=== PATIENT | female | born 1985 | race African-American/Black ===

== ENCOUNTER 2023-10-10 12:46 | Inpatient (IN) | payer OTHER ==
[2023-10-10 14:34] VITALS: BMI 22.5
[2023-10-10] MEDS ORDERED: MAGNESIUM HYDROX 2400MG/30ML ORAL SUSPENSION 30 ML CUP PO PRN (15:04)
[2023-10-10] MEDS ORDERED: BISMUTH SUBSALICYLATE 524 MG/30 ML PO PRN (15:04)
[2023-10-10] MEDS ORDERED: LOPERAMIDE HCL 2 MG CAPSULE PO PRN (15:04)
[2023-10-10] MEDS ORDERED: BENZOCAINE/MENTHOL (CHLORASEPTIC ) LOZENGE MM PRN (15:04)
[2023-10-10] MEDS ORDERED: POLYETHYLENE GLYCOL (HEALTHYLAX) 3350 17 GM PACKET PO PRN (15:04)
[2023-10-10] MEDS ORDERED: ACETAMINOPHEN 325 MG TABLET (FP) PO PRN (15:04)
[2023-10-10] MEDS ORDERED: IBUPROFEN 400 MG TABLET (FP) PO PRN (15:04)
[2023-10-10] MEDS ORDERED: BENZONATATE 200 MG CAPSULE PO PRN (15:04)
[2023-10-10] MEDS ORDERED: IBUPROFEN 600 MG TABLET (FP) PO PRN (15:04)
[2023-10-10] MEDS ORDERED: guaiFENesin 600 MG TABLET.ER (FP) PO PRN (15:04)
[2023-10-10] MEDS ORDERED: ONDANSETRON *ODT* 4 MG TABLET SL PRN (15:04)
[2023-10-10] MEDS ORDERED: MAG HYDROX/AL HYDROX/SIMETH 30 ML UNIT-DOSE CUP PO PRN (15:04)
[2023-10-10] MEDS ORDERED: NALOXONE HCL (KLOXXADO) 8 MG SPRAY NS PRN (15:04)
[2023-10-10] MEDS ORDERED: NALOXONE HCL 0.4 MG/ML VIAL IM PRN (15:04)
[2023-10-10] MEDS ORDERED: DICYCLOMINE HCL 10 MG CAPSULE PO PRN (15:04)
[2023-10-10] MEDS ORDERED: NICOTINE 14 MG/24 HOURS TOPICAL PATCH TD ONE (16:29)
[2023-10-10] MEDS ORDERED: PRENATAL VITAMINS W/ FOLIC ACID TABLET (FP) PO ONE (16:29)
[2023-10-10] MEDS: PRENATAL VITAMINS W/ FOLIC ACID TABLET (FP) PO SCH (16:32)
[2023-10-10] MEDS: NICOTINE 14 MG/24 HOURS TOPICAL PATCH TD SCH (16:34)
[2023-10-10] MEDS: hydrOXYzine PAMOATE 25 MG CAPSULE (FP) PO PRN (18:37)
[2023-10-10] MEDS: METHOCARBAMOL 500 MG TABLET PO PRN (18:38)
[2023-10-10] MEDS: THIAMINE 100 MG TABLET PO SCH (22:15)
[2023-10-10] MEDS: MELATONIN 5 MG TABLETS PO SCH (22:15)
[2023-10-11 12:36] LABS: CHLORIDE 102 mmol/L (98-107); POTASSIUM 3.3 mmol/L (3.5-5.1); SODIUM 136 mmol/L (136-145)
[2023-10-11 12:37] LABS: HEMATOCRIT 36.5 % (32.4-45.2); HEMOGLOBIN 12.7 GM/dL (10.7-15.3); MCH 33.5 pg (25.7-33.7); MCHC 34.8 g/dl (32.0-36.0); MEAN CELL VOLUME 96.2 fl (80-96); MEAN PLT VOLUME 8.5 fl (7.5-11.1); PLATELET COUNT 237 10^3/uL (134-434); RBC 3.79 M/mm3 (3.60-5.2); RDW 13.5 % (11.6-15.6); WHITE BLOOD COUNT 3.1 K/mm3 (4.0-10.0)
[2023-10-11 12:41] LABS: CALCIUM 8.6 mg/dL (8.5-10.1)
[2023-10-11 12:42] LABS: ALBUMIN 3.3 g/dl (3.4-5.0); ANION GAP 4 mmol/L (4-13); BLOOD UREA NITROGEN 10.4 mg/dL (7-18); CO2 29 mmol/L (21-32); GLUCOSE,RANDOM 82 mg/dL (74-106)
[2023-10-11 12:45] LABS: CREATININE 0.8 mg/dL (0.55-1.3); SGOT/AST 39 U/L (15-37); SGPT/ALT 24 U/L (13-61)
[2023-10-11 12:47] LABS: BILIRUBIN,TOTAL 0.8 mg/dL (0.2-1); TOT PROT 6.9 g/dl (6.4-8.2)
[2023-10-11 12:48] LABS: ALK PHOS 72 U/L (45-117)
[2023-10-11 13:30] LABS: HIV INTERPRETATION NEGATIVE (NEGATIVE)
[2023-10-11] MEDS: POTASSIUM CHLORIDE ORAL LIQUID 20 MEQ/15 ML PO ONE ×2 (13:40→22:20)
[2023-10-11] MEDS: cloNIDine HCL 0.1 MG TABLET PO PRN (18:37)
[2023-10-11] MEDS: MIRTAZAPINE 15 MG TABLET (FP) PO SCH (22:20)
[2023-10-12 10:20] VITALS: RESP 16
[2023-10-12 13:23] VITALS: BP 134/98; PULSE 72; TEMP 97.6
== END 2023-10-12 13:10 | disposition home or self-care (01) | DRG 775 ==
LOC: YASAS 12:46 → Y6N 16:24
PROVIDERS: ADMIT Allergy & Immunology; ATTEND Surgery
PROC: HZ2ZZZZ Detoxification Services for Substance Abuse Treatment (ICD-10-PCS; principal; 2023-10-10)
DX: F10.24 Alcohol dependence with alcohol-induced mood disorder (principal); F10.20 Alcohol dependence, uncomplicated; F12.10 Cannabis abuse, uncomplicated; F17.213 Nicotine dependence, cigarettes, with withdrawal; F32.A Depression, unspecified; E87.6 Hypokalemia; Z88.0 Allergy status to penicillin
CPT/HCPCS: 36415; 80053; 80305; 80307; 84132; 85027; 86780; 87389; 93005; 93010

== ENCOUNTER 2024-03-08 11:57 | Inpatient (IN) | payer OTHER ==
[2024-03-08 12:20] VITALS: BMI 19.4
[2024-03-08] MEDS ORDERED: BISMUTH SUBSALICYLATE 262 MG/15 ML BTL PO PRN (12:38)
[2024-03-08] MEDS ORDERED: MAG HYDROX/AL HYDROX/SIMETH 30 ML UNIT-DOSE CUP PO PRN (12:38)
[2024-03-08] MEDS ORDERED: guaiFENesin 600 MG TABLET.ER (FP) PO PRN (12:38)
[2024-03-08] MEDS ORDERED: diazePAM 5 MG TABLET PO PRN (12:38)
[2024-03-08] MEDS ORDERED: BENZOCAINE/MENTHOL (CHLORASEPTIC ) LOZENGE MM PRN (12:38)
[2024-03-08] MEDS ORDERED: IBUPROFEN 600 MG TABLET (FP) PO PRN (12:38)
[2024-03-08] MEDS ORDERED: NICOTINE POLACRILEX 2 MG GUM BUC PRN (12:38)
[2024-03-08] MEDS ORDERED: LOPERAMIDE HCL 2 MG CAPSULE PO PRN (12:38)
[2024-03-08] MEDS ORDERED: ACETAMINOPHEN 325 MG TABLET (FP) PO PRN (12:38)
[2024-03-08] MEDS ORDERED: NALOXONE HCL 0.4 MG/ML VIAL IM PRN (12:38)
[2024-03-08] MEDS ORDERED: POLYETHYLENE GLYCOL (HEALTHYLAX) 3350 17 GM PACKET PO PRN (12:38)
[2024-03-08] MEDS ORDERED: NALOXONE (NARCAN) HCL 4 MG/0.1 ML SPRAY NS PRN (12:38)
[2024-03-08] MEDS ORDERED: ONDANSETRON *ODT* 4 MG TABLET SL PRN (12:38)
[2024-03-08] MEDS ORDERED: MAGNESIUM HYDROX 2400MG/30ML ORAL SUSPENSION 30 ML CUP PO PRN (12:38)
[2024-03-08] MEDS ORDERED: BENZONATATE 200 MG CAPSULE PO PRN (12:38)
[2024-03-08] MEDS ORDERED: DICYCLOMINE HCL 10 MG CAPSULE PO PRN (12:38)
[2024-03-08] MEDS ORDERED: IBUPROFEN 400 MG TABLET (FP) PO PRN (12:38)
[2024-03-08] MEDS ORDERED: NICOTINE 14 MG/24 HOURS TOPICAL PATCH TD ONE (13:18)
[2024-03-08] MEDS: NICOTINE 14 MG/24 HOURS TOPICAL PATCH TD SCH (13:20)
[2024-03-08] MEDS: hydrOXYzine PAMOATE 25 MG CAPSULE (FP) PO PRN (17:13)
[2024-03-08] MEDS: diazePAM 5 MG TABLET PO SCH (22:11)
[2024-03-08] MEDS: MELATONIN 5 MG TABLETS PO SCH (22:12)
[2024-03-08] MEDS: THIAMINE 100 MG TABLET PO SCH (22:12)
[2024-03-09] MEDS: METHOCARBAMOL 500 MG TABLET PO PRN (00:12)
[2024-03-09] MEDS: PRENATAL VITAMINS W/ FOLIC ACID TABLET (FP) PO SCH (10:31)
[2024-03-09 13:50] LABS: HEMATOCRIT 34.4 % (32.4-45.2); HEMOGLOBIN 11.9 GM/dL (10.7-15.3); MCH 33.6 pg (25.7-33.7); MCHC 34.7 g/dl (32.0-36.0); MEAN CELL VOLUME 96.9 fl (80-96); MEAN PLT VOLUME 8.7 fl (7.5-11.1); PLATELET COUNT 182 10^3/uL (134-434); RBC 3.55 M/mm3 (3.60-5.2); RDW 13.9 % (11.6-15.6); WHITE BLOOD COUNT 2.9 K/mm3 (4.0-10.0)
[2024-03-09 13:55] LABS: CHLORIDE 104 mmol/L (98-107); POTASSIUM 3.3 mmol/L (3.5-5.1); SODIUM 139 mmol/L (136-145)
[2024-03-09 14:01] LABS: ALBUMIN 2.9 g/dl (3.4-5.0); ANION GAP 5 mmol/L (4-13); CALCIUM 7.9 mg/dL (8.5-10.1); CO2 31 mmol/L (21-32); GLUCOSE,RANDOM 85 mg/dL (74-106)
[2024-03-09 14:03] LABS: CREATININE 0.7 mg/dL (0.55-1.3)
[2024-03-09 14:04] LABS: BILIRUBIN,TOTAL 0.5 mg/dL (0.2-1); SGOT/AST 47 U/L (15-37); SGPT/ALT 38 U/L (13-61); TOT PROT 6.4 g/dl (6.4-8.2)
[2024-03-09 14:06] LABS: ALK PHOS 84 U/L (45-117)
[2024-03-09 14:45] LABS: HIV INTERPRETATION NEGATIVE (NEGATIVE)
[2024-03-09] MEDS: MIRTAZAPINE 15 MG TABLET (FP) PO SCH (22:11)
[2024-03-10] MEDS: diazePAM 5 MG TABLET PO SCH (05:56)
[2024-03-10] MEDS: amLODIPine BESYLATE 2.5 MG TABLET (FP) PO SCH (13:04)
[2024-03-10] MEDS: POTASSIUM CHLORIDE ORAL LIQUID 20 MEQ/15 ML PO SCH (13:04)
[2024-03-10] MEDS: NICOTINE POLACRILEX 2 MG LOZENGE BC PRN (22:00)
[2024-03-11] MEDS: diazePAM 5 MG TABLET PO SCH (05:51)
[2024-03-11 06:18] VITALS: RESP 16
[2024-03-11 10:04] VITALS: BP 135/84; PULSE 61; TEMP 98.2
[2024-03-12] MEDS ORDERED: diazePAM 5 MG TABLET PO ONE (06:00)
== END 2024-03-11 10:09 | disposition home or self-care (01) | DRG 775 ==
LOC: YASAS 11:57 → Y3N 13:12 → Y6N 03-09 03:43
PROVIDERS: ADMIT Allergy & Immunology; ATTEND Surgery
PROC: HZ2ZZZZ Detoxification Services for Substance Abuse Treatment (ICD-10-PCS; principal; 2024-03-08)
DX: F10.230 Alcohol dependence with withdrawal, uncomplicated (principal); F12.20 Cannabis dependence, uncomplicated; F17.210 Nicotine dependence, cigarettes, uncomplicated; F10.280 Alcohol dependence with alcohol-induced anxiety disorder; F10.24 Alcohol dependence with alcohol-induced mood disorder; F32.A Depression, unspecified; D70.2 Other drug-induced agranulocytosis; E87.6 Hypokalemia; I10 Essential (primary) hypertension; G47.00 Insomnia, unspecified; Z88.0 Allergy status to penicillin
CPT/HCPCS: 36415; 80053; 80305; 80307; 81025; 85027; 86780; 86803; 87389; 93005; 93010